=== PATIENT | male | born 1970 | race African-American/Black ===

== ENCOUNTER 2021-01-19 13:59 | Emergency (ER) | payer OTHER ==
[~2021-01-19] VITALS: Ht 180.3 cm; Wt 105.0 kg
[2021-01-19 18:55] VITALS: BP 125/64
== END 2021-01-19 18:56 | disposition home or self-care (01) ==
LOC: ER 13:59
DX: M25.512 Pain in left shoulder (principal)
CPT/HCPCS: 73030; 99283